=== PATIENT | male | born 1980 | race Caucasian/White ===

== ENCOUNTER 2018-05-21 08:37 | Emergency (ER) | payer BC, OTHER ==
[2018-05-21 08:42] VITALS: BP 126/86; PULSE 65; RESP 16; TEMP 98.5
--- NOTE | 2018-05-21 09:03 | ED ---
General Adult HPI - General Chief complaint: Wound/Laceration Stated complaint: [facility] -RT THUMB INJURY Time Seen by Provider: 05/21/18 08:55 Source: patient, RN notes reviewed Mode of arrival: ambulatory Limitations: no limitations - History of Present Illness Initial comments: 38-year-old male presenting to the emergency room today with a chief complaint of a injury to the right thumb. Patient does admit that he is right-handed. He was at work earlier today trying to get a piece of paper out of a roller grabbed his right thumb causing a partial skin avulsion. Patient states that it seemed to take chunk out of the side. Patient states tetanus is up-to-date. He states he has full range motion. He denies any other complaints or symptoms. - Related Data Home Medications Medication Instructions Recorded Confirmed Dextroamphetamine/Amphetamine 20 mg PO BID 02/19/15 02/19/15 [Adderall] Previous Rx's Medication Instructions Recorded Cefuroxime Axetil [Ceftin] 500 mg PO BID #20 tablet 02/21/15 Allergies Allergy/AdvReac Type Severity Reaction Status Date / Time No Known Allergies Allergy Verified 05/21/18 08:42 Review of Systems ROS Statement: Those systems with pertinent positive or pertinent negative responses have been documented in the HPI. ROS Other: All systems not noted in ROS Statement are negative. Past Medical History Past Medical History: No Reported History History of Any Multi-Drug Resistant Organisms: None Reported Additional Past Surgical History / Comment(s): deviated septum, cyst removed from neck Past Anesthesia/Blood Transfusion Reactions: No Reported Reaction Past Psychological History: ADD/ADHD Smoking Status: Current every day smoker Past Alcohol Use History: Occasional Past Drug Use History: None Reported General Exam - General Exam Comments Initial Comments: General: The patient is awake and alert, in no distress, and does not appear acutely ill. Neck: The neck is supple, there is no tenderness or JVD. Cardiovascular: There is a regular rate and rhythm. No murmur, rub or gallop is appreciated. Respiratory: Lungs are clear to auscultation, respirations are non-labored, breath sounds are equal. No wheezes, stridor, rales, or rhonchi. Musculoskeletal: Patient does show full range of motion. Patient does have skin avulsion measuring approximately 1 cm to the medial aspect of the right thumb. No active bleeding. Strength 5/5. Sensations intact. Radial pulses 2+ . Neurological: A&O x 3. CN II-XII intact, There are no obvious motor or sensory deficits. Coordination appears grossly intact. Speech is normal. Skin: Skin avulsion to the medial aspect of the right thumb measuring 1 cm. No active bleeding. Psychiatric: Normal mood and affect. Limitations: no limitations Course Vital Signs 05/21/18 08:39 Temperature 98.5 F Pulse Rate 65 Respiratory 16 Rate Blood Pressure 126/86 O2 Sat by Pulse 98 Oximetry Medical Decision Making - Medical Decision Making Options were discussed with patient about sutures. The emergency room. He has declined. Wound will heal from secondary intention. Patient will be given antibiotic prescription for Keflex to cover for any infection. Advised returning and following up with the employee health as needed. Disposition Clinical Impression: Skin avulsion Disposition: HOME SELF-CARE Condition: Good Instructions: Skin Avulsion (ED) Additional Instructions: Please change dressing twice daily continue with topical antibiotics. Please follow-up with employee health or return here to the emergency room for any signs of infection which may include increased pain, swelling, redness, fever or chills. Please return to emergency room for any other concerns. Is patient prescribed a controlled substance at d/c from ED?: No Referrals: None,Stated [Primary Care Provider] - 1-2 days Time of Disposition: 09:02
== END 2018-05-21 09:07 | disposition home or self-care (01) ==
LOC: EC 08:37
DX: S61.001A Unspecified open wound of right thumb without damage to nail, initial encounter (principal); F90.9 Attention-deficit hyperactivity disorder, unspecified type; F17.200 Nicotine dependence, unspecified, uncomplicated; Z79.899 Other long term (current) drug therapy; W45.8XXA Other foreign body or object entering through skin, initial encounter
CPT/HCPCS: 99283